=== PATIENT | female | born 1955 | race African-American/Black ===

== ENCOUNTER 2018-02-24 19:57 | Emergency (ER) | payer OTHER | END 2018-02-24 21:38 | disposition home or self-care (01) | LOC: ER 21:38 | DX: S80.01XA Contusion of right knee, initial encounter (principal); S50.02XA Contusion of left elbow, initial encounter; M17.11 Unilateral primary osteoarthritis, right knee; I10 Essential (primary) hypertension; W10.9XXA Fall (on) (from) unspecified stairs and steps, initial encounter | CPT/HCPCS: 73564; 99284 ==

== ENCOUNTER 2018-05-24 05:43 | Day surgery (SDC) | payer OTHER ==
[~2018-05-24] VITALS: Ht 172.7 cm; Wt 73.9 kg
[~2018-05-24 05:43] MED LIST: ACET500T33 PO; CHOL2000 PO; GLIM4TAB2 PO; INSU100I13 SQ; LISI1TAB7 PO; NAPR500T8 PO; OMEG1CAP29 PO; UBID100C26 PO
[2018-05-24] MEDS ORDERED: BUPIVACAINE 0.5% 50 ML VIAL. ONE (06:03)
[2018-05-24] MEDS ORDERED: LIDOCAINE 1% PF 30 ML VIAL. ONE (06:03)
[2018-05-24] MEDS ORDERED: IV RINGERS,LACTATED 1000ML 1,000 ML IV SCH (07:00)
[2018-05-24] MEDS ORDERED: fentaNYL PF VIAL 100 MCG/2 ML VIAL IV PRN (07:00)
[2018-05-24] MEDS ORDERED: PROCHLORPERAZINE 10 MG/2 ML VIAL. IV PRN (07:00)
[2018-05-24] MEDS ORDERED: MORPHINE SULFATE 2 MG/ML VIAL. IV PRN (07:00)
[2018-05-24] MEDS ORDERED: LIDOCAINE 1% PF 2 ML VIAL. ID PRN (07:00)
[2018-05-24] MEDS ORDERED: ONDANSETRON PF 4 MG/2 ML VIAL. IV PRN (07:00)
[2018-05-24] MEDS ORDERED: MIDAZOLAM HCL/PF 2 MG/2 ML VIAL. ONE (07:01)
[2018-05-24] MEDS ORDERED: PROPOFOL 20 ML IV ONE (07:01)
--- NOTE | 2018-05-24 07:39 | DISCH ---
DISCHARGE INSTRUCTIONS Condition on Discharge Condition on Discharge: Stable Activity After Discharge Activity Instructions for Disc: Other, see below Other activity instructions: wiggle fingers Bathing Instructions: Shower-keep dressing dry Weight Bearing Status after Di: As tolerated Diet after Discharge Diet after Discharge: Regular Wound Incision Care Wound/Incision Care: Ice to area for comfort, Keep wound/cast CDI, Keep wound elevated, Change dressing Other wound/incision instructi: ok to change in 2 days Contacting the DRSuresh after DC Call your doctor for: Concerns you may have Follow-Up Follow up with: Dilia in 2 wks IVELISSE CHOI II, MD May 24, 2018 07:39
[2018-05-24] MEDS ORDERED: SEVOFLURANE 16 TO 30 MINUTES. IH ONE (07:49)
[2018-05-24] MEDS ORDERED: DEXAMETHASONE SOD PHOS 20 MG/5 ML VIAL. ONE (07:49)
[2018-05-24] MEDS ORDERED: PHENYLEPHRINE in 0.9% NACL PF 1 MG/10 ML SYRINGE. IV ONE (07:58)
[2018-05-24] MEDS ORDERED: ONDANSETRON PF 4 MG/2 ML VIAL. ONE (08:03)
[2018-05-24] MEDS ORDERED: ePHEDrine PF IN SALINE 50 MG/5 ML DISP.SYRIN IV ONE (08:06)
[2018-05-24] MEDS ORDERED: HYDR-971 PO (08:54)
[2018-05-24] MEDS: fentaNYL PF VIAL 100 MCG/2 ML VIAL IV PRN ×2 (08:54→09:17)
[2018-05-24] MEDS ORDERED: DOCU-109 PO (08:56)
[2018-05-24] MEDS ORDERED: ONDA8TAB12 PO (08:57)
[2018-05-24] MEDS ORDERED: INSULIN ASPART 100 UNIT/ML 10ML VIAL. SQ ONE (09:00)
[2018-05-24] MEDS ORDERED: HYDROcodone/APAP 5/325MG 1 TAB TABLET PO ONE ×2 (09:15)
[2018-05-24 09:30] VITALS: BP 140/69
--- NOTE | 2018-05-24 11:52 | PDOC4 ---
Operative Note Operative Note Date of procedure: 05/24/2018 Surgeon: Kaden Choi Surface Grinder: None Preoperative diagnosis: Right carpal tunnel syndrome Postoperative diagnosis same Procedure performed: Open right carpal tunnel release Tourniquet time: Less than 15 minutes Blood loss: 5 mL Anesthesia: Gen. Findings: Normal-appearing median nerve Complications: None Reason for procedure: Patient is a very pleasant 62-year-old female with right greater than left carpal tunnel that was proven on EMG. Clinical evidence was consistent with this as well, we had tried conservative therapy in the form of injection and wrist splinting, despite this her symptoms were progressive. We had a discussion of the risks, benefits, alternatives to surgery and she wished to proceed. Description of procedure: Patient was greeted in the preoperative area where the correct extremity was verified and marked. She is taken back to the operative suite and her antibiotics were started as she was brought back. Once in the operating room, she was transferred gently supine to the operating room table and secured to bed with all pressure points padded. She underwent successful induction of a general anesthetic. Nonsterile tourniquet applied to her right upper arm. Right upper extremity prepped and draped in our usual sterile fashion. We conducted our standard preoperative timeout. I then incised her skin through a crease in her palm distal to her distal wrist crease. I then used mosquitoes and spread down to palmar fascia. Bipolar cautery used for electrocautery. Palmar fascia and incised in line with the skin incision myself retaining retractor was placed. Identified the transverse carpal ligament and release this sharply. I then position a Ragnell retractor at the distal extent of the incision and spread above and below the remainder of the transverse carpal ligament and released with tenotomies. I repeated this maneuver and an ulnar directed fashion at the proximal extent of the incision as well. I used the tip of the tenotomies to palpate along the course of the nerve and felt that accomplished a complete release. The wound was irrigated out with sterile saline. Skin was closed with 3-0 nylon in a horizontal mattress fashion. Sterile dressing was applied followed by a soft bulky wrap. Tourniquet was let down. She was awakened from anesthesia, no complications, all counts correct 2 prior to wound closure. She was transferred gently supine to the recovery room cart and taken to PACU in a stable and extubated condition. Postoperative plan is encourage active range of motion at wrist and fingers. Dressing and wound care instructions were given and written form. She'll follow up with me in 2 weeks, sooner should a problem arise. KADEN CHOI II, MD May 24, 2018 11:52
[2018-05-24] MEDS ORDERED: ceFAZolin 2GM PREMIX 2 GM/50 ML BAG IV ONE (12:00)
== END 2018-05-24 10:15 | disposition home or self-care (01) ==
LOC: SURG 05:43
PROVIDERS: ATTEND Orthopaedic Surgery Sports Medicine
DX: G56.01 Carpal tunnel syndrome, right upper limb (principal); I10 Essential (primary) hypertension; E11.9 Type 2 diabetes mellitus without complications; Z90.49 Acquired absence of other specified parts of digestive tract; Z90.710 Acquired absence of both cervix and uterus; Z87.440 Personal history of urinary (tract) infections; Z72.89 Other problems related to lifestyle; Z79.4 Long term (current) use of insulin; Z79.899 Other long term (current) drug therapy
CPT/HCPCS: 64721; 82962; J0690; J1100; J2250; J2370; J2405; J2704; J3010; J3490; A7015

== ENCOUNTER 2018-08-21 15:58 | Emergency (ER) | payer OTHER ==
[~2018-08-21] VITALS: Ht 172.7 cm; Wt 72.6 kg
[~2018-08-21 15:58] MED LIST changes: +DOCU-109 PO; +HYDR-971 PO; +ONDA8TAB12 PO
[2018-08-21 16:11] VITALS: BP 160/81
[2018-08-21] MEDS ORDERED: FLUORESCEIN OPHTH TEST STRIP. OS ONE (16:15)
[2018-08-21] MEDS ORDERED: TETRACAINE 0.5% OPHTH SOLUTION 4ML BOTTLE. OS ONE (16:15)
--- NOTE | 2018-08-21 16:17 | PHYS DOC ---
Past Medical History Past Medical History: Hypertension Past Surgical History: Appendectomy Alcohol Use: None Drug Use: None Adult General Chief Complaint Chief Complaint: EYE PROBLEMS HPI HPI Patient is a 63 year old female with history of hypertension who presents with left eye redness, itching, irritation as well as swelling that began a couple minutes prior to coming to the ED, patient states she was washing her face with soap and water when the left eye became itchy and painful. Patient denies getting so in her eye. Denies any vision loss. Review of Systems Review of Systems Constitutional: Denies fever or chills [] Eyes: Reports left eye redness, itching, irritation and pain. Denies change in visual acuity Musculoskeletal: Denies back pain or joint pain [] Integument: Denies rash or skin lesions [] Neurologic: Denies headache, focal weakness or sensory changes [] All other systems were reviewed and found to be within normal limits, except as documented in this note. Current Medications Current Medications Current Medications Medications (Trade) Dose Ordered Sig/Karyna Start Time Stop Time Status Last Admin Dose Admin Diphtheria/ Tetanus/Acell Pertussis (Boostrix) 0.5 ml ONCE ONCE 08/21/18 16:45 08/21/18 16:46 DC Fluorescein Sodium (Ful-Akilah) 1 strip 1X ONCE 08/21/18 16:15 08/21/18 16:16 DC 08/21/18 16:24 1 STRIP Tetracaine HCl (Tetracaine) 1 drop 1X ONCE 08/21/18 16:15 08/21/18 16:16 DC 08/21/18 16:24 1 DROP Allergies Allergies Allergies Coded Allergies Type Severity Reaction Last Updated Verified No Known Drug Allergies 05/24/18 No Physical Exam Physical Exam Constitutional: Well developed, well nourished, no acute distress, non-toxic appearance. [] HENT: Normocephalic, atraumatic, bilateral external ears normal, oropharynx moist, no oral exudates, nose normal. [] Eyes: PERRLA, EOMI, left conjunctiva is slightly injected, there is trace swelling on the left upper eyelid Left eye exam under garcia lamp was noted for 2 tiny corneal abrasions at approximately 1500 position. Skin: Warm, dry, no erythema, no rash. [] Back: No tenderness, no CVA tenderness. [] Extremities: No tenderness, no cyanosis, no clubbing, ROM intact, no edema. [] Neurologic: Alert and oriented X 3, normal motor function, normal sensory function, no focal deficits noted. [] Psychologic: Affect normal, judgement normal, mood normal. [] Current Patient Data Vital Signs Vital Signs Date Time Temp Pulse Resp B/P (MAP) Pulse Ox O2 Delivery O2 Flow Rate FiO2 08/21/18 16:11 98.4 103 16 160/81 (107) 98 Room Air 98.4 EKG EKG [] Radiology/Procedures Radiology/Procedures [] Course & Med Decision Making Course & Med Decision Making Pertinent Labs and Imaging studies reviewed. (See chart for details) This is a 63-year-old female patient presenting to the ED today with left eye irritation that began after she washed her face with soap. Left eye exam under garcia lamp was noted for 2 tiny corneal abrasions at approximately 1500 position. Tetanus was updated. Discharged with tobramycin eyedrop. Follow-up with electronic organ technician in one week if symptoms continue. Dragon Disclaimer Dragon Disclaimer This electronic medical record was generated, in whole or in part, using a voice recognition dictation system. Departure Departure Impression: Primary Impression: Left cornea abrasion Disposition: HOME, SELF-CARE Condition: STABLE Referrals: ANGELINA ESPINOSA (PCP) BRADEN CABRERA MD Follow-up in 1-2 weeks Patient Instructions: Eye - Corneal Abrasion, [id number] Additional Instructions: You have elevated in the emergency room for have left eye irritation and noted to have a corneal abrasion. Avoid rubbing your left eye. Use the prescribed eye ointment eye medication as ordered. Follow-up with the provided electronic organ technician or your own doctor in 1-2 weeks. Come back to the ED at any point symptoms worsen. Scripts Tobramycin (TOBRAMYCIN) 5 Ml Drops 1 DROP OS Q4HRS W/A, #5 ML Prov: FARHANA TOUSSAINT APRN 08/21/18 Problem Qualifiers Primary Impression: Left cornea abrasion Encounter type: initial encounter Qualified Codes: S05.02XA - Injury of conjunctiva and corneal abrasion without foreign body, left eye, initial encounter FARHANA TOUSSAINT APRN Aug 21, 2018 16:17
[2018-08-21] MEDS ORDERED: DIPHTH,PERTUSS(ACELL),TET TOX 0.5 ML DISP.SYRIN. VAX IM ONE (16:45)
[2018-08-21] MEDS ORDERED: TOBR5DRO6 OS (17:06)
== END 2018-08-21 17:15 | disposition home or self-care (01) ==
LOC: ER 15:58
DX: S05.02XA Injury of conjunctiva and corneal abrasion without foreign body, left eye, initial encounter (principal); I10 Essential (primary) hypertension; X58.XXXA Exposure to other specified factors, initial encounter; Y93.89 Activity, other specified; Y92.89 Other specified places as the place of occurrence of the external cause; Y99.8 Other external cause status
CPT/HCPCS: 99283